=== PATIENT | female | born 1950 | race Caucasian/White ===

== ENCOUNTER 2017-05-14 00:48 | Inpatient (IN) | payer OTHER ==
[~2017-05-14] VITALS: Ht 175.3 cm; Wt 120.0 kg
[2017-05-14] MEDS ORDERED: HYDROCHLOROTHIA25 MG PO (02:13)
[2017-05-14] MEDS ORDERED: TOPROL XL50 MG PO (02:14)
[2017-05-14] MEDS ORDERED: DOXYCYCLINE MO100 MG PO (02:14)
[2017-05-14] MEDS ORDERED: NYSTATIN15 GM TOP (02:16)
[2017-05-14] MEDS ORDERED: HYDROCODON-ACE1 EAC4 PO (02:17)
[2017-05-14] MEDS ORDERED: NEURONTIN300 MG PO (02:17)
[2017-05-14] MEDS ORDERED: WELLBUTRIN XL300 M1 PO (02:18)
[2017-05-14] MEDS ORDERED: LINZESS145 MCG PO (02:19)
[2017-05-14] MEDS ORDERED: CATAPRES 0.1MG0.1 MG PO (02:19)
[2017-05-14] MEDS ORDERED: OMEPRAZOLE20 MG PO (02:20)
[2017-05-14] MEDS ORDERED: LOSARTAN-HCTZ1 EAC1 PO (02:20)
[2017-05-14] MEDS ORDERED: KLOR-CON M2020 MEQ PO (02:21)
[2017-05-14] MEDS ORDERED: REQUIP0.5 MG PO (02:22)
[2017-05-14] MEDS ORDERED: VENTOLIN/PROVE0.5 ML INH (02:23)
[2017-05-14 04:29] LABS: HEMOGLOBIN 11.4 gm/dl (12.3-15.3); RED BLOOD COUNT 4.08 M/UL (4.00-5.10); WHITE BLOOD COUNT 5.8 K/UL (4.5-11.0)
[2017-05-14 04:49] LABS: BUN/CREATININE RATIO 18 (0-10)
[2017-05-14] MEDS ORDERED: ELIQUIS 5 MG TAB5 MG PO (10:38)
[2017-05-15 04:19] LABS: HEMOGLOBIN 11.4 gm/dl (12.3-15.3); RED BLOOD COUNT 4.09 M/UL (4.00-5.10)
[2017-05-15 04:22] LABS: WHITE BLOOD COUNT 7.6 K/UL (4.5-11.0)
[2017-05-16 03:17] LABS: HEMOGLOBIN 11.4 gm/dl (12.3-15.3); RED BLOOD COUNT 4.12 M/UL (4.00-5.10); WHITE BLOOD COUNT 8.9 K/UL (4.5-11.0)
[2017-05-17 03:51] LABS: HEMOGLOBIN 10.2 gm/dl (12.3-15.3); RED BLOOD COUNT 3.76 M/UL (4.00-5.10)
[2017-05-17 03:52] LABS: WHITE BLOOD COUNT 5.2 K/UL (4.5-11.0)
[2017-05-20 06:18] LABS: HEMOGLOBIN 10.8 gm/dl (12.3-15.3); RED BLOOD COUNT 3.97 M/UL (4.00-5.10); WHITE BLOOD COUNT 4.2 K/UL (4.5-11.0)
[2017-05-24 05:59] LABS: HEMOGLOBIN 11.1 gm/dl (12.3-15.3); RED BLOOD COUNT 3.99 M/UL (4.00-5.10); WHITE BLOOD COUNT 5.1 K/UL (4.5-11.0)
[2017-05-25 06:29] LABS: HEMOGLOBIN 10.4 gm/dl (12.3-15.3); RED BLOOD COUNT 3.82 M/UL (4.00-5.10)
== END 2017-05-26 14:35 | DRG 682 ==
LOC: PROG CARE 00:48 → MED SURG 4 01:21
PROVIDERS: Internal Medicine; Internal Medicine Infectious Disease; Internal Medicine Nephrology; ADMIT Internal Medicine
PROC: 5A09457 Assistance with Respiratory Ventilation, 24-96 Consecutive Hours, Continuous Positive Airway Pressure (ICD-10-PCS; principal; 2017-05-14)
DX: N17.0 Acute kidney failure with tubular necrosis (principal); J96.22 Acute and chronic respiratory failure with hypercapnia; J96.21 Acute and chronic respiratory failure with hypoxia; G93.40 Encephalopathy, unspecified; I50.31 Acute diastolic (congestive) heart failure; E66.2 Morbid (severe) obesity with alveolar hypoventilation; I13.0 Hypertensive heart and chronic kidney disease with heart failure and stage 1 through stage 4 chronic kidney disease, or unspecified chronic kidney disease; B17.9 Acute viral hepatitis, unspecified; I48.0 Paroxysmal atrial fibrillation; J44.9 Chronic obstructive pulmonary disease, unspecified; E87.5 Hyperkalemia; K80.20 Calculus of gallbladder without cholecystitis without obstruction; I27.2 Other secondary pulmonary hypertension; K76.0 Fatty (change of) liver, not elsewhere classified; D64.9 Anemia, unspecified; D69.6 Thrombocytopenia, unspecified; E78.5 Hyperlipidemia, unspecified; G25.81 Restless legs syndrome; L89.322 Pressure ulcer of left buttock, stage 2; L89.312 Pressure ulcer of right buttock, stage 2; L89.150 Pressure ulcer of sacral region, unstageable; N18.9 Chronic kidney disease, unspecified; E83.42 Hypomagnesemia; T36.5X5A Adverse effect of aminoglycosides, initial encounter; M19.90 Unspecified osteoarthritis, unspecified site; Z87.891 Personal history of nicotine dependence; Z87.440 Personal history of urinary (tract) infections; Z72.3 Lack of physical exercise; Z74.01 Bed confinement status; Z79.01 Long term (current) use of anticoagulants; Z68.39 Body mass index [BMI] 39.0-39.9, adult; Z99.81 Dependence on supplemental oxygen; Z79.891 Long term (current) use of opiate analgesic; Z79.899 Other long term (current) drug therapy; Z90.710 Acquired absence of both cervix and uterus; Z98.890 Other specified postprocedural states; Z82.49 Family history of ischemic heart disease and other diseases of the circulatory system
CPT/HCPCS: ECHO; 36415; 36600; 71010; 71250; 76705; 80048; 80053; 80074; 80170; 80307; 82140; 82436; 82550; 82553; 82570; 82803; 83540; 83735; 84100; 84132; 84133; 84156; 84300; 84443; 84484; 85027; 85610; 87086; 89050; 93005; 93306; 94640; 94660; 94664; 97110; 97116; 97530; 97535; J1940; J7030; J7050